=== PATIENT | female | born 1940 | race Asian ===

== ENCOUNTER 2017-10-28 09:50 | Emergency (ER) | payer MEDICARE, BC ==
[~2017-10-28] VITALS: Ht 154.9 cm; Wt 56.7 kg
[2017-10-28] MEDS ORDERED: VALS40TA4 PO (10:05)
[2017-10-28] MEDS ORDERED: ATEN50TA PO (10:05)
[2017-10-28] MEDS ORDERED: AMLO5TAB2 PO (10:05)
--- NOTE | 2017-10-28 10:30 | NUR ---
PATEINT STATES SHE DOESNT HAVE CHEST PAIN SHE HAS 'DISCOMFORT" AND STATES SHE THINKS IT MAY BE DUE TO "GAS". DR OBRIEN AWARE.
--- NOTE | 2017-10-28 10:56 | NUR ---
12 lead EKG done - NSR, given to Dr. Robert
[2017-10-28 10:57] LABS: CARBON DIOXIDE 27 mmol/L (21-32); CHLORIDE 89 mmol/L (98-107); CREATININE 0.5 mg/dL (0.6-1.3); GLUCOSE 75 mg/dL (74-106); POTASSIUM 3.9 mmol/L (3.5-5.1); UREA NITROGEN, BLOOD 12 mg/dL (7-18)
[2017-10-28 11:05] LABS: BASOPHILS % (AUTO) 0.4 % (0.0-2.0); EOSINOPHILS # (AUTO) 0.1 K/uL (0.0-0.7); EOSINOPHILS % (AUTO) 0.5 % (0.0-7.0); HEMATOCRIT 39.3 % (31.2-41.9); HEMOGLOBIN 13.4 g/dL (10.9-14.3); LYMPHOCYTES # (AUTO) 1.8 K/uL (20.0-40.0); LYMPHOCYTES % (AUTO) 18.3 % (20.5-51.5); MEAN CORPUSCULAR HEMOGLOBIN 32.6 uug (24.7-32.8); MEAN CORPUSCULAR HGB CONC 34 g/dL (32.3-35.6); MEAN CORPUSCULAR VOLUME 95.6 fL (75.5-95.3); MONOCYTES # (AUTO) 0.8 K/uL (2.0-10.0); MONOCYTES % (AUTO) 8.3 % (0.0-11.0); NEUTROPHILS # (AUTO) 7.2 K/uL (1.8-8.9); NEUTROPHILS % (AUTO) 72.5 % (38.5-71.5); PLATELET COUNT (AUTO) 330 K/uL (179-408); RED BLOOD CELL COUNT(AUTO) 4.12 MIL/uL (3.63-4.92)
[2017-10-28 11:09] LABS: ALANINE AMINOTRANSFERASE 28 U/L (14-59); ALKALINE PHOSPHATASE 57 U/L (50-136); ASPARTATE AMINOTRANSFERASE 15 U/L (15-37); BILIRUBIN,DIRECT 0.1 mg/dL (0.0-0.2); BILIRUBIN,TOTAL 0.6 mg/dL (0.2-1.0)
--- NOTE | 2017-10-28 11:45 | NUR ---
PT IS AWAKE AND ALERT WITH NO NEW COMPLAINTS. AWAITING TEST RESULTS.
[2017-10-28] MEDS ORDERED: ASPIRIN 81 MG TAB.CHEW PO ONE (12:45)
[2017-10-28] MEDS ORDERED: IV NORMAL SALINE 500 ML BAG IV ONE (12:45)
[2017-10-28] MEDS ORDERED: IV NORMAL SALINE 1000 ML BAG IV ONE (12:45)
--- NOTE | 2017-10-28 13:05 | NUR ---
DR OBRIEN WAS AT BEDSIDE SPEAKING TO PATIENT AND FAMILY
[2017-10-28] MEDS ORDERED: ASPIRIN 81 MG TAB.CHEW ONE (13:10)
--- NOTE | 2017-10-28 13:42 | NUR ---
IV DC'D, CATHETER TIP INTACT, PRESSURE APPLIED, DRESSING APPLIED. DC AND FOLLOW UP INSTRUCTIONS GIVEN AND EXPAINED TO PATIENT AND FAMILY WHO STATE THEY UNDERSTAND ALL INSTRUCTIONS. PATIENT SIGNED OUT AMA AND STATES SHE UNDERSTANDS ALL RISKS INCLUDING .
[2017-10-28 13:44] VITALS: BP 138/82
== END 2017-10-28 13:45 | disposition left against medical advice (07) ==
LOC: ER 09:50
DX: R07.89 Other chest pain (principal); E87.1 Hypo-osmolality and hyponatremia; I10 Essential (primary) hypertension; Z88.0 Allergy status to penicillin; E78.00 Pure hypercholesterolemia, unspecified
CPT/HCPCS: 36415; 71010; 80048; 80076; 83880; 84484; 85025; 85730; 93005; 96360; 99285; A4663; J7040; 70030-TC

== ENCOUNTER 2017-10-30 09:30 | Emergency (ER) | payer MEDICARE, BC ==
[~2017-10-30] VITALS: Ht 154.9 cm; Wt 56.7 kg
[~2017-10-30 09:30] MED LIST: AMLO5TAB2 PO; ATEN50TA PO; VALS40TA4 PO
[2017-10-30] MEDS ORDERED: ASPIRIN 81 MG TAB.CHEW PO ONE (10:30)
[2017-10-30] MEDS ORDERED: MAG HYDROX/AL HYDROX/SIMETH 30 ML LIQUID UDC PO ONE (10:30)
[2017-10-30] MEDS ORDERED: FAMOTIDINE 20 MG TABLET PO ONE (10:30)
[2017-10-30] MEDS ORDERED: MAG HYDROX/AL HYDROX/SIMETH 30 ML LIQUID UDC ONE (10:45)
[2017-10-30] MEDS ORDERED: ASPIRIN 81 MG TAB.CHEW ONE (10:45)
[2017-10-30] MEDS ORDERED: FAMOTIDINE 20 MG TABLET ONE (10:45)
--- NOTE | 2017-10-30 10:51 | NUR ---
MEDS ADMINISTERED, LABS DRAWN,EKG DONE, MONITOR SHOWS NSR/PO2=97% ON ROOM AIR. PT REFUSED SALINE LOCK.
[2017-10-30 11:00] LABS: BASOPHILS # (AUTO) 0.1 K/uL (0.0-8.0); BASOPHILS % (AUTO) 0.6 % (0.0-2.0); EOSINOPHILS # (AUTO) 0.1 K/uL (0.0-0.7); EOSINOPHILS % (AUTO) 0.6 % (0.0-7.0); HEMATOCRIT 37.5 % (31.2-41.9); HEMOGLOBIN 13.2 g/dL (10.9-14.3); LYMPHOCYTES # (AUTO) 1.3 K/uL (20.0-40.0); LYMPHOCYTES % (AUTO) 13.1 % (20.5-51.5); MEAN CORPUSCULAR HEMOGLOBIN 33.7 uug (24.7-32.8); MEAN CORPUSCULAR HGB CONC 35 g/dL (32.3-35.6); MEAN CORPUSCULAR VOLUME 96.1 fL (75.5-95.3); MONOCYTES # (AUTO) 0.8 K/uL (2.0-10.0); MONOCYTES % (AUTO) 7.9 % (0.0-11.0); NEUTROPHILS # (AUTO) 7.5 K/uL (1.8-8.9); NEUTROPHILS % (AUTO) 77.8 % (38.5-71.5); PLATELET COUNT (AUTO) 326 K/uL (179-408); RED BLOOD CELL COUNT(AUTO) 3.91 MIL/uL (3.63-4.92); WHITE BLOOD COUNT (AUTO) 9.7 K/uL (3.8-11.8)
[2017-10-30 11:01] LABS: CARBON DIOXIDE 24 mmol/L (21-32); CHLORIDE 93 mmol/L (98-107); CREATININE 0.6 mg/dL (0.6-1.3); GLUCOSE 103 mg/dL (74-106); POTASSIUM 4.1 mmol/L (3.5-5.1); UREA NITROGEN, BLOOD 13 mg/dL (7-18)
[2017-10-30 11:14] LABS: ALANINE AMINOTRANSFERASE 28 U/L (14-59); ALKALINE PHOSPHATASE 66 U/L (50-136); ASPARTATE AMINOTRANSFERASE 19 U/L (15-37); BILIRUBIN,DIRECT 0.2 mg/dL (0.0-0.2); BILIRUBIN,TOTAL 0.5 mg/dL (0.2-1.0); TOTAL PROTEIN, SERUM 6.7 g/dL (6.4-8.2)
[2017-10-30 11:28] LABS: BAND % (MANUAL) 2 % (0-10); EOSINOPHILS % (MANUAL) 1 % (0-8); LYMPHOCYTES % (MANUAL) 13 % (20-40); METAMYELOCYTES % 1 % (0-1); MONOCYTES % (MANUAL) 8 % (2-10); MYELOCYTES % 1 % (0-0); NEUTROPHILS % (MANUAL) 74 % (42-75)
--- NOTE | 2017-10-30 13:10 | NUR ---
MSE COMPLETED, PT SIGNED OUT AMA, COPY OG EKG AND TESTS GIVEN TO PT. PT GOT DRESSED AND AMBULATED WITH WALKER W/O DIFF/TOOK ALL BELONGINGS.
[2017-10-30 13:11] VITALS: BP 118/60
== END 2017-10-30 13:12 | disposition left against medical advice (07) ==
LOC: ER 09:30
DX: R07.89 Other chest pain (principal); I10 Essential (primary) hypertension; E78.00 Pure hypercholesterolemia, unspecified; Z88.0 Allergy status to penicillin
CPT/HCPCS: 36415; 70030-TC; 71045; 85025; 85730; 93005; A4663

== ENCOUNTER 2019-04-27 11:54 | Inpatient (IN) | payer MEDICARE, BC ==
[2019-04-27] VITALS (11 sets, daily range): BP systolic 111–144; BP diastolic 41–85
[~2019-04-27] VITALS: Ht 165.1 cm; Wt 59.0 kg
[~2019-04-27 11:54] MED LIST changes: -AMLO5TAB2 PO; +AMLO5TAB9 PO
[2019-04-27] MEDS ORDERED: BRIM5DRO3 EACHEYE (12:22)
[2019-04-27] MEDS ORDERED: ASPI-605 PO (12:22)
[2019-04-27] MEDS ORDERED: PREDNISOLONE 1% LEFTEYE (12:22)
[2019-04-27] MEDS ORDERED: IMDUR PO (12:22)
[2019-04-27] MEDS ORDERED: ATOR10TA PO (12:22)
[2019-04-27] MEDS ORDERED: PLAVIX (12:22)
[2019-04-27] MEDS ORDERED: NETARSUDIL RIGHTEYE (12:22)
[2019-04-27] MEDS ORDERED: CLON0.5T12 PO (12:22)
[2019-04-27 13:10] LABS: BASOPHILS % (AUTO) 0.3 % (0.0-2.0); EOSINOPHILS % (AUTO) 0.1 % (0.0-7.0); HEMATOCRIT 27.7 % (31.2-41.9); HEMOGLOBIN 9.3 g/dL (10.9-14.3); LYMPHOCYTES # (AUTO) 2.4 K/uL (20.0-40.0); LYMPHOCYTES % (AUTO) 16.3 % (20.5-51.5); MEAN CORPUSCULAR HEMOGLOBIN 32.1 uug (24.7-32.8); MEAN CORPUSCULAR HGB CONC 34 g/dL (32.3-35.6); MEAN CORPUSCULAR VOLUME 95.6 fL (75.5-95.3); MONOCYTES # (AUTO) 0.9 K/uL (2.0-10.0); MONOCYTES % (AUTO) 5.9 % (0.0-11.0); NEUTROPHILS # (AUTO) 11.5 K/uL (1.8-8.9); NEUTROPHILS % (AUTO) 77.4 % (38.5-71.5); PLATELET COUNT (AUTO) 293 K/uL (179-408); WHITE BLOOD COUNT (AUTO) 14.8 K/uL (3.8-11.8)
[2019-04-27 13:19] LABS: CARBON DIOXIDE 25 mmol/L (21-32); CHLORIDE 103 mmol/L (98-107); CREATININE 1.1 mg/dL (0.6-1.3); GLUCOSE 138 mg/dL (74-106); POTASSIUM 4.2 mmol/L (3.5-5.1); UREA NITROGEN, BLOOD 46 mg/dL (7-18)
[2019-04-27 13:25] LABS: ALANINE AMINOTRANSFERASE 23 U/L (14-59); ALKALINE PHOSPHATASE 44 U/L (50-136); ASPARTATE AMINOTRANSFERASE 8 U/L (15-37); BILIRUBIN,DIRECT 0.1 mg/dL (0.0-0.2); BILIRUBIN,TOTAL 0.3 mg/dL (0.2-1.0); LIPASE 78 U/L (73-393); TOTAL PROTEIN, SERUM 6.5 g/dL (6.4-8.2)
[2019-04-27] MEDS ORDERED: PANTOPRAZOLE SODIUM IV 80 MG in IV DEXTROSE 5% 500 ML IV ONE (13:45)
[2019-04-27] MEDS ORDERED: IV NORMAL SALINE 1000 ML BAG IV ONE (13:45)
[2019-04-27] MEDS ORDERED: PANTOPRAZOLE SODIUM IV 80 MG in IV DEXTROSE 5% 100 ML IV ONE (13:45)
[2019-04-27] MEDS ORDERED: PANTOPRAZOLE SODIUM 40 MG VIAL ONE (14:11)
[2019-04-27] MEDS ORDERED: PANTOPRAZOLE SODIUM 40 MG VIAL IV ONE (14:15)
[2019-04-27] MEDS ORDERED: ACETAMINOPHEN 650 MG SUPP.RECT RC PRN (17:30)
[2019-04-27] MEDS ORDERED: ENALAPRILAT DIHYDRATE 2.5 MG/2 ML VIAL IV PRN (17:30)
[2019-04-27 17:37] LABS: *BILIRUBIN,URIN NEGATIVE (NEGATIVE); *BLOOD, URINE NEGATIVE (NEGATIVE); *CLARITY,URINE CLEAR (CLEAR); *COLOR,URINE YELLOW (YELLOW); *KETONES,URINE NEGATIVE (NEGATIVE); *UROBILINOGEN,URINE 0.2 E.U./dl (NORMAL); LEUKOCYTE ESTERASE ,URINE NEGATIVE (NEGATIVE); NITRITE, URINE NEGATIVE (NEGATIVE); UGLUCOSE NEGATIVE (NEGATIVE)
[2019-04-27] MEDS: MORPHINE SULFATE 2 MG/1 ML DISP.SYRIN IV PRN ×2 (17:58→20:34)
[2019-04-27] MEDS: POTASSIUM CHLORIDE 20 MEQ in IV D5 1/2 NS 1000 ML 1,000 ML IV PRN (19:26)
[2019-04-27] MEDS ORDERED: ENALAPRILAT DIHYDRATE 1.25 MG/1 ML VIAL IV PRN (19:30)
[2019-04-27] MEDS ORDERED: BRIMONIDINE-P 0.1% OPHTH DROP 5 ML DROPS EACHEYE SCH (19:45)
[2019-04-27] MEDS ORDERED: BIMATOPROST 0.01% OPHT DROP 2.5 ML BOTTLE RIGHTEYE SCH ×2 (21:00)
[2019-04-27 21:44] LABS: MEAN CORPUSCULAR VOLUME 96.2 fL (75.5-95.3); MONOCYTES # (AUTO) 0.7 K/uL (2.0-10.0)
[2019-04-27 21:45] LABS: BASOPHILS % (AUTO) 0.3 % (0.0-2.0); EOSINOPHILS # (AUTO) 0.1 K/uL (0.0-0.7); EOSINOPHILS % (AUTO) 0.5 % (0.0-7.0); HEMATOCRIT 21.8 % (31.2-41.9); LYMPHOCYTES # (AUTO) 2.4 K/uL (20.0-40.0); LYMPHOCYTES % (AUTO) 20.2 % (20.5-51.5); MEAN CORPUSCULAR HEMOGLOBIN 31.7 uug (24.7-32.8); MEAN CORPUSCULAR HGB CONC 33 g/dL (32.3-35.6); NEUTROPHILS # (AUTO) 8.5 K/uL (1.8-8.9); PLATELET COUNT (AUTO) 211 K/uL (179-408); WHITE BLOOD COUNT (AUTO) 11.7 K/uL (3.8-11.8)
[2019-04-27 21:48] LABS: RED BLOOD CELL COUNT(AUTO) 2.26 MIL/uL (3.63-4.92)
[2019-04-27 21:50] LABS: HEMOGLOBIN 7.2 g/dL (10.9-14.3)
[2019-04-27] MEDS ORDERED: OCTREOTIDE ACETATE 100 MCG/1 MLVIAL ONE (22:39)
[2019-04-27] MEDS ORDERED: OCTREOTIDE ACETATE 50 MCG/1 ML ML ONE (22:40)
[2019-04-27] MEDS ORDERED: OCTREOTIDE ACETATE 500 MCG/1 ML VIAL ONE (22:43)
[2019-04-27] MEDS: OCTREOTIDE ACETATE DRIP 1,250 MCG in IV NORMAL SALINE 247.5 ML IV PRN (23:29)
[2019-04-28] VITALS (26 sets, daily range): BP systolic 92–165; BP diastolic 48–98
[2019-04-28] MEDS: MORPHINE SULFATE 2 MG/1 ML DISP.SYRIN IV PRN ×2 (02:36→07:38)
[2019-04-28 05:38] LABS: BASOPHILS % (AUTO) 0.4 % (0.0-2.0); EOSINOPHILS # (AUTO) 0.1 K/uL (0.0-0.7); EOSINOPHILS % (AUTO) 0.6 % (0.0-7.0); LYMPHOCYTES # (AUTO) 1.7 K/uL (20.0-40.0); LYMPHOCYTES % (AUTO) 14.7 % (20.5-51.5); MEAN CORPUSCULAR HEMOGLOBIN 31.1 uug (24.7-32.8); MEAN CORPUSCULAR HGB CONC 33 g/dL (32.3-35.6); MEAN CORPUSCULAR VOLUME 93.3 fL (75.5-95.3); MONOCYTES # (AUTO) 0.6 K/uL (2.0-10.0); MONOCYTES % (AUTO) 5.2 % (0.0-11.0); NEUTROPHILS # (AUTO) 9.4 K/uL (1.8-8.9); NEUTROPHILS % (AUTO) 79.1 % (38.5-71.5); PLATELET COUNT (AUTO) 196 K/uL (179-408); RED BLOOD CELL COUNT(AUTO) 2.89 MIL/uL (3.63-4.92); WHITE BLOOD COUNT (AUTO) 11.9 K/uL (3.8-11.8)
[2019-04-28 06:03] LABS: ALANINE AMINOTRANSFERASE 19 U/L (14-59); ALKALINE PHOSPHATASE 34 U/L (50-136); ASPARTATE AMINOTRANSFERASE 28 U/L (15-37); BILIRUBIN,TOTAL 0.8 mg/dL (0.2-1.0); CARBON DIOXIDE 24 mmol/L (21-32); CHLORIDE 104 mmol/L (98-107); CREATININE 0.8 mg/dL (0.6-1.3); GLUCOSE 150 mg/dL (74-106); MAGNESIUM 1.9 mg/dL (1.8-2.4); POTASSIUM 3.9 mmol/L (3.5-5.1); TOTAL PROTEIN, SERUM 5.4 g/dL (6.4-8.2); UREA NITROGEN, BLOOD 13 mg/dL (7-18)
[2019-04-28 06:25] LABS: LYMPHOCYTES % (MANUAL) 24 % (20-40); MONOCYTES % (MANUAL) 3 % (2-10); NEUTROPHILS % (MANUAL) 73 % (42-75)
[2019-04-28 06:28] LABS: THYROID STIMULATING HORMONE 0.385 mIU/mL (0.358-3.740)
[2019-04-28] MEDS: ONDANSETRON 4 MG/2 ML VIAL IV PRN (06:51)
[2019-04-28] MEDS: PANTOPRAZOLE SODIUM 40 MG VIAL IV SCH ×2 (07:36→20:11)
[2019-04-28] MEDS ORDERED: BRIMONIDINE-P 0.1% OPHTH DROP 5 ML DROPS EACHEYE SCH (09:00)
[2019-04-28] MEDS: BRIMONIDINE 0.2% OPHT DROP 10 ML BOTTLE EACHEYE SCH ×2 (09:03→16:44)
[2019-04-28] MEDS: prednisoLONE ACET 1% OPHT DROP 5 ML BOTTLE LEFTEYE SCH (09:04)
[2019-04-28] MEDS: ATORVASTATIN 40 MG TABLET PO SCH ×2 (10:45→20:11)
[2019-04-28] MEDS: OCTREOTIDE ACETATE DRIP 1,250 MCG in IV NORMAL SALINE 247.5 ML IV PRN (11:05)
[2019-04-28] MEDS: ISOSORBIDE MONONITRATE 30 MG TAB.SR.24H PO SCH (11:11)
[2019-04-28] MEDS: ASPIRIN 81 MG TAB.CHEW PO SCH (11:11)
[2019-04-28] MEDS: METOPROLOL TARTRATE 25 MG TABLET PO SCH ×2 (11:12→20:12)
[2019-04-28] MEDS ORDERED: NEUTRA PHOS PACKET PO ONE (12:00)
[2019-04-28 13:54] LABS: HEMOGLOBIN 9.4 g/dL (10.9-14.3)
[2019-04-28 16:23] LABS: CHOLESTEROL 127 mg/dL (<200); HDL CHOLESTEROL 38 mg/dL (40-60)
[2019-04-28 16:24] LABS: TRIGLYCERIDES 155 MG/DL (30-150)
[2019-04-28] MEDS: POTASSIUM CHLORIDE 20 MEQ in IV D5 1/2 NS 1000 ML 1,000 ML IV PRN (20:10)
[2019-04-28] MEDS: LATANOPROST OPHT DROP 2.5 ML BOTTLE RIGHTEYE SCH (20:10)
[2019-04-29] VITALS (14 sets, daily range): BP systolic 102–132; BP diastolic 49–70
[2019-04-29 05:13] LABS: BASOPHILS % (AUTO) 0.2 % (0.0-2.0); EOSINOPHILS % (AUTO) 0.5 % (0.0-7.0); LYMPHOCYTES # (AUTO) 1.1 K/uL (20.0-40.0); LYMPHOCYTES % (AUTO) 10.3 % (20.5-51.5); MEAN CORPUSCULAR HEMOGLOBIN 31.9 uug (24.7-32.8); MEAN CORPUSCULAR HGB CONC 35 g/dL (32.3-35.6); MONOCYTES # (AUTO) 0.4 K/uL (2.0-10.0); PLATELET COUNT (AUTO) 211 K/uL (179-408); RED BLOOD CELL COUNT(AUTO) 2.83 MIL/uL (3.63-4.92); WHITE BLOOD COUNT (AUTO) 10.5 K/uL (3.8-11.8)
[2019-04-29 05:29] LABS: CARBON DIOXIDE 26 mmol/L (21-32); CHLORIDE 103 mmol/L (98-107); CREATININE 0.7 mg/dL (0.6-1.3); GLUCOSE 149 mg/dL (74-106); PHOSPHOROUS 2.8 mg/dL (2.5-4.9); POTASSIUM 3.7 mmol/L (3.5-5.1); UREA NITROGEN, BLOOD 8 mg/dL (7-18)
[2019-04-29] MEDS: PANTOPRAZOLE SODIUM 40 MG VIAL IV SCH ×2 (08:08→20:10)
[2019-04-29] MEDS: ASPIRIN 81 MG TAB.CHEW PO SCH (08:09)
[2019-04-29] MEDS: ISOSORBIDE MONONITRATE 30 MG TAB.SR.24H PO SCH (08:09)
[2019-04-29] MEDS: METOPROLOL TARTRATE 25 MG TABLET PO SCH ×2 (08:10→20:10)
[2019-04-29] MEDS: prednisoLONE ACET 1% OPHT DROP 5 ML BOTTLE LEFTEYE SCH (08:10)
[2019-04-29] MEDS: BRIMONIDINE 0.2% OPHT DROP 10 ML BOTTLE EACHEYE SCH ×2 (08:10→17:18)
[2019-04-29] MEDS: OCTREOTIDE ACETATE DRIP 1,250 MCG in IV NORMAL SALINE 247.5 ML IV PRN (12:40)
[2019-04-29] MEDS: ONDANSETRON 4 MG/2 ML VIAL IV PRN (13:36)
[2019-04-29] MEDS: POTASSIUM CHLORIDE 20 MEQ in IV D5 1/2 NS 1000 ML 1,000 ML IV PRN (18:04)
[2019-04-29] MEDS: ATORVASTATIN 40 MG TABLET PO SCH (20:10)
[2019-04-29] MEDS: LATANOPROST OPHT DROP 2.5 ML BOTTLE RIGHTEYE SCH (20:12)
[2019-04-30 00:12] VITALS: BP 129/66
[2019-04-30 04:00] VITALS: BP 134/69
[2019-04-30 07:36] LABS: HEMOGLOBIN 9.5 g/dL (10.9-14.3); RED BLOOD CELL COUNT(AUTO) 3.04 MIL/uL (3.63-4.92)
[2019-04-30 07:37] LABS: BASOPHILS % (AUTO) 0.3 % (0.0-2.0); EOSINOPHILS # (AUTO) 0.1 K/uL (0.0-0.7); EOSINOPHILS % (AUTO) 1.2 % (0.0-7.0); HEMATOCRIT 28.6 % (31.2-41.9); LYMPHOCYTES # (AUTO) 0.8 K/uL (20.0-40.0); LYMPHOCYTES % (AUTO) 11.1 % (20.5-51.5); MEAN CORPUSCULAR HEMOGLOBIN 31.2 uug (24.7-32.8); MEAN CORPUSCULAR HGB CONC 33 g/dL (32.3-35.6); MEAN CORPUSCULAR VOLUME 93.8 fL (75.5-95.3); MONOCYTES # (AUTO) 0.4 K/uL (2.0-10.0); NEUTROPHILS # (AUTO) 5.7 K/uL (1.8-8.9); NEUTROPHILS % (AUTO) 81.4 % (38.5-71.5); PLATELET COUNT (AUTO) 247 K/uL (179-408)
[2019-04-30 07:40] LABS: CARBON DIOXIDE 26 mmol/L (21-32); CHLORIDE 106 mmol/L (98-107); CREATININE 0.6 mg/dL (0.6-1.3); GLUCOSE 156 mg/dL (74-106); MAGNESIUM 2.3 mg/dL (1.8-2.4); PHOSPHOROUS 2.1 mg/dL (2.5-4.9); POTASSIUM 3.8 mmol/L (3.5-5.1); UREA NITROGEN, BLOOD 5 mg/dL (7-18)
[2019-04-30] MEDS: BRIMONIDINE 0.2% OPHT DROP 10 ML BOTTLE EACHEYE SCH ×2 (08:21→16:36)
[2019-04-30] MEDS: PANTOPRAZOLE SODIUM 40 MG VIAL IV SCH (08:21)
[2019-04-30] MEDS: prednisoLONE ACET 1% OPHT DROP 5 ML BOTTLE LEFTEYE SCH (08:22)
[2019-04-30] MEDS: ASPIRIN 81 MG TAB.CHEW PO SCH (08:23)
[2019-04-30] MEDS: ISOSORBIDE MONONITRATE 30 MG TAB.SR.24H PO SCH (08:25)
[2019-04-30] MEDS: METOPROLOL TARTRATE 25 MG TABLET PO SCH (08:25)
[2019-04-30] MEDS: POTASSIUM CHLORIDE 20 MEQ in IV D5 1/2 NS 1000 ML 1,000 ML IV PRN (09:12)
[2019-04-30] MEDS ORDERED: PROPOFOL 200 MG/20 ML BOTTLE IV ONE (11:05)
[2019-04-30] MEDS ORDERED: ESMOLOL HCL 100 MG/10 ML VIAL IV ONE (11:05)
[2019-04-30] MEDS ORDERED: LIDOCAINE-MPF 2% 5 ML VIAL MC ONE (11:05)
[2019-04-30] MEDS ORDERED: IV NORMAL SALINE 1000 ML BAG IV ONE (11:05)
[2019-04-30] MEDS ORDERED: IRR STERIL WATER FOR IRR 1000 ML BOTTLE IR ONE (11:05)
[2019-04-30 11:40] VITALS: BP 113/53
[2019-04-30 16:00] VITALS: BP 116/50
[2019-04-30] MEDS ORDERED: NEUTRA PHOS PACKET PO ONE (16:15)
== END 2019-04-30 17:00 | disposition home or self-care (01) | DRG 377 ==
LOC: ER 11:56 → CCU 14:19 → TELE3 04-29 15:48
PROVIDERS: ADMIT Internal Medicine; ATTEND Internal Medicine
PROC: 30233N1 Transfusion of Nonautologous Red Blood Cells into Peripheral Vein, Percutaneous Approach (ICD-10-PCS; principal; 2019-04-28)
PROC: 0DB68ZX Excision of Stomach, Via Natural or Artificial Opening Endoscopic, Diagnostic (ICD-10-PCS; 2019-04-30)
DX: K25.4 Chronic or unspecified gastric ulcer with hemorrhage (principal); I21.4 Non-ST elevation (NSTEMI) myocardial infarction; R57.1 Hypovolemic shock; N17.0 Acute kidney failure with tubular necrosis; D62 Acute posthemorrhagic anemia; D68.59 Other primary thrombophilia; I25.10 Atherosclerotic heart disease of native coronary artery without angina pectoris; Z95.5 Presence of coronary angioplasty implant and graft; Z74.09 Other reduced mobility; K29.70 Gastritis, unspecified, without bleeding; M19.90 Unspecified osteoarthritis, unspecified site; Z96.651 Presence of right artificial knee joint; Z96.642 Presence of left artificial hip joint; Z94.7 Corneal transplant status; Z79.899 Other long term (current) drug therapy; Z79.02 Long term (current) use of antithrombotics/antiplatelets; I70.0 Atherosclerosis of aorta; I11.9 Hypertensive heart disease without heart failure; H40.9 Unspecified glaucoma; E78.5 Hyperlipidemia, unspecified; D75.89 Other specified diseases of blood and blood-forming organs; E11.9 Type 2 diabetes mellitus without complications; E78.00 Pure hypercholesterolemia, unspecified; Z79.82 Long term (current) use of aspirin
CPT/HCPCS: 36415; 70030-TC; 71045; 83605; 83690; 83735; 84100; 84443; 85018; 85025; 85730; 86850; 86900; 86901; 86920; 87040; 87086; 88342; 93005; 93307; 97116; 97530; A4217; A4663; C9113; G0378; J2270; J2354; J2405; J2650; J3480; J3490; J7030; J7050; J7060; P9016-BL; P9021

== ENCOUNTER 2023-11-14 13:25 | Inpatient (IN) | payer MEDICARE, BC ==
[~2023-11-14] VITALS: Ht 152.4 cm; Wt 56.7 kg
[~2023-11-14 13:25] MED LIST changes: -AMLO5TAB9 PO; +ASPI-605 PO; +ATOR10TA PO; +BRIM5DRO3 EACHEYE; +CLON0.5T4 PO; +IMDUR PO; +NETARSUDIL RIGHTEYE; +PLAVIX; +PREDNISOLONE 1% LEFTEYE; -VALS40TA4 PO
[2023-11-14 15:10] LABS: BASOPHILS % (AUTO) 0.2 % (0.0-2.0); DIFFERENTIAL COMMENT 0; EOSINOPHILS % (AUTO) 0.1 % (0.0-7.0); HEMATOCRIT 37.7 % (31.2-41.9); HEMOGLOBIN 12.4 g/dL (10.9-14.3); LYMPHOCYTES # (AUTO) 0.8 K/uL (0.8-4.8); LYMPHOCYTES % (AUTO) 5.7 % (20.5-51.5); MEAN CORPUSCULAR HEMOGLOBIN 30.1 uug (24.7-32.8); MEAN CORPUSCULAR HGB CONC 33 g/dL (32.3-35.6); MEAN CORPUSCULAR VOLUME 91.2 fL (75.5-95.3); MONOCYTES # (AUTO) 0.6 K/uL (0.1-1.30); MONOCYTES % (AUTO) 4.1 % (0.0-11.0); NEUTROPHILS # (AUTO) 12.9 K/uL (1.8-8.9); NEUTROPHILS % (AUTO) 89.9 % (38.5-71.5); PLATELET COUNT (AUTO) 419 K/uL (179-408); RED BLOOD CELL COUNT(AUTO) 4.14 MIL/uL (3.63-4.92); RED CELL DISTRIBUTION WIDTH 13.9 % (12.3-17.7); WHITE BLOOD COUNT (AUTO) 14.3 K/uL (3.8-11.8)
[2023-11-14 15:20] LABS: CARBON DIOXIDE 27 mmol/L (21-32); CHLORIDE 96 mmol/L (98-107); CREATININE 0.7 mg/dL (0.6-1.3); GLUCOSE 111 mg/dL (74-106); POTASSIUM 4.2 mmol/L (3.5-5.1); SODIUM SERUM 134 mmol/L (136-145); UREA NITROGEN, BLOOD 9 mg/dL (7-18)
[2023-11-14 15:32] LABS: ALANINE AMINOTRANSFERASE 47 U/L (14-59); ALBUMIN 3.6 g/dL (3.4-5.0); ALKALINE PHOSPHATASE 68 U/L (50-136); ASPARTATE AMINOTRANSFERASE 16 U/L (15-37); BILIRUBIN,DIRECT 0.1 mg/dL (0.0-0.2); BILIRUBIN,TOTAL 0.5 mg/dL (0.2-1.0); LACTIC ACID 2.2 mmol/L (0.4-2.0); NT-PRO BNP 78 pg/mL (0-125); TOTAL PROTEIN, SERUM 6.8 g/dL (6.4-8.2)
[2023-11-14] MEDS ORDERED: METRONIDAZOLE 500 MG/NS 100ML 100 ML IV ONE ×2 (15:45→15:52)
[2023-11-14] MEDS ORDERED: IV NORMAL SALINE 1000 ML BAG IV ONE (15:45)
[2023-11-14] MEDS ORDERED: CEFTRIAXONE 1 G in IV DEXTROSE 5% 50 ML IV ONE (15:45)
[2023-11-14] MEDS ORDERED: CEFTRIAXONE /D5W 50ML IVPB **ER PYXIS IV ONE (15:51)
[2023-11-14 15:54] LABS: *BILIRUBIN,URIN NEGATIVE (NEGATIVE); *BLOOD, URINE NEGATIVE (NEGATIVE); *CLARITY,URINE CLEAR (CLEAR); *COLOR,URINE YELLOW (YELLOW); *KETONES,URINE NEGATIVE (NEGATIVE); *PROTEIN,URINE NEGATIVE (NEGATIVE); *UROBILINOGEN,URINE 0.2 E.U./dl (NORMAL); LEUKOCYTE ESTERASE ,URINE NEGATIVE (NEGATIVE); NITRITE, URINE NEGATIVE (NEGATIVE); UGLUCOSE NEGATIVE (NEGATIVE)
[2023-11-14] MEDS ORDERED: HYDROCODONE/APAP 5-325MG TABLET PO PRN (20:00)
[2023-11-14] MEDS ORDERED: ONDANSETRON 4 MG/2 ML VIAL IV PRN (20:00)
[2023-11-14] MEDS ORDERED: BISACODYL 10 MG SUPP.RECT RC PRN (20:00)
[2023-11-14] MEDS ORDERED: ACETAMINOPHEN 325 MG TABLET PO PRN (20:00)
[2023-11-14] MEDS ORDERED: levoFLOXacin 500 MG/D5W 500 MG in PREMIXED 1 EACH IV SCH (20:00)
[2023-11-14] MEDS ORDERED: METRONIDAZOLE 500 MG/NS 100ML 500 MG in PREMIXED 1 EACH IV SCH (22:00)
[2023-11-15] VITALS (7 sets, daily range): BP systolic 90–167; BP diastolic 51–82; TEMP 98.2–98.8; O2SAT 94–96
[2023-11-15] MEDS ORDERED: levoFLOXacin 500 MG/D5W 500 MG in PREMIXED 1 EACH IV SCH (00:30)
[2023-11-15] MEDS ORDERED: levoFLOXacin 500 MG/D5W 100 ML ONE (01:05)
[2023-11-15] MEDS ORDERED: METRONIDAZOLE 500 MG/NS 100ML 100 ML IV ONE (01:06)
[2023-11-15] MEDS: DOCUSATE SODIUM 100 MG CAPSULE PO SCH ×2 (01:12→20:52)
[2023-11-15] MEDS: ATORVASTATIN 10 MG TABLET PO SCH ×2 (01:12→20:52)
[2023-11-15] MEDS: IV 1/2NS 1000 ML 1,000 ML IV PRN ×2 (01:15→18:27)
[2023-11-15] MEDS: PANTOPRAZOLE SODIUM 40 MG TABLET.DR PO SCH (06:28)
[2023-11-15 07:42] LABS: EOSINOPHILS # (AUTO) 2.3 K/uL (0.0-0.7); EOSINOPHILS % (AUTO) 20.6 % (0.0-7.0); HEMATOCRIT 38.3 % (31.2-41.9); HEMOGLOBIN 12.6 g/dL (10.9-14.3); LYMPHOCYTES # (AUTO) 0.9 K/uL (0.8-4.8); LYMPHOCYTES % (AUTO) 8.1 % (20.5-51.5); MEAN CORPUSCULAR HEMOGLOBIN 30.2 uug (24.7-32.8); MEAN CORPUSCULAR HGB CONC 33 g/dL (32.3-35.6); MEAN CORPUSCULAR VOLUME 91.6 fL (75.5-95.3); MONOCYTES # (AUTO) 0.3 K/uL (0.1-1.30); MONOCYTES % (AUTO) 2.9 % (0.0-11.0); NEUTROPHILS # (AUTO) 7.8 K/uL (1.8-8.9); NEUTROPHILS % (AUTO) 68.4 % (38.5-71.5); PLATELET COUNT (AUTO) 421 K/uL (179-408); RED BLOOD CELL COUNT(AUTO) 4.18 MIL/uL (3.63-4.92); RED CELL DISTRIBUTION WIDTH 13.7 % (12.3-17.7); WHITE BLOOD COUNT (AUTO) 11.4 K/uL (3.8-11.8)
[2023-11-15 07:46] LABS: DIFFERENTIAL COMMENT 1
[2023-11-15 08:04] LABS: THYROID STIMULATING HORMONE 4.792 mIU/mL (0.358-3.740)
[2023-11-15 08:09] LABS: ALANINE AMINOTRANSFERASE 33 U/L (14-59); ALBUMIN 3.4 g/dL (3.4-5.0); ALKALINE PHOSPHATASE 58 U/L (50-136); ASPARTATE AMINOTRANSFERASE 14 U/L (15-37); BILIRUBIN,TOTAL 0.5 mg/dL (0.2-1.0); CALCIUM 8.6 mg/dL (8.5-10.1); CARBON DIOXIDE 30 mmol/L (21-32); CHLORIDE 101 mmol/L (98-107); CHOLESTEROL 148 mg/dL (<200); CREATININE 0.6 mg/dL (0.6-1.3); GLUCOSE 87 mg/dL (74-106); HDL CHOLESTEROL 66 mg/dL (40-60); MAGNESIUM 2.1 mg/dL (1.8-2.4); PHOSPHOROUS 3.5 mg/dL (2.5-4.9); POTASSIUM 3.8 mmol/L (3.5-5.1); SODIUM SERUM 139 mmol/L (136-145); TOTAL PROTEIN, SERUM 6.5 g/dL (6.4-8.2); TRIGLYCERIDES 91 MG/DL (30-150); UREA NITROGEN, BLOOD 8 mg/dL (7-18)
[2023-11-15] MEDS ORDERED: BRIMONIDINE-P 0.1% OPHTH DROP 5 ML DROPS EACHEYE SCH (09:00)
[2023-11-15] MEDS ORDERED: ATENOLOL 50 MG TABLET PO SCH ×2 (09:00)
[2023-11-15] MEDS ORDERED: ISOSORBIDE MONONITRATE 30 MG TAB.SR.24H PO SCH ×3 (09:00→21:00)
[2023-11-15] MEDS ORDERED: CLONAZEPAM 0.5 MG TABLET PO SCH ×2 (09:00)
[2023-11-15] MEDS: prednisoLONE ACET 1% OPHT DROP 5 ML BOTTLE LEFTEYE SCH (09:06)
[2023-11-15] MEDS: ASPIRIN EC 81 MG TABLET.DR PO SCH (09:06)
[2023-11-15] MEDS: BRIMONIDINE 0.2% OPHT DROP 10 ML BOTTLE EACHEYE SCH ×3 (09:06→17:24)
[2023-11-15] MEDS: METRONIDAZOLE 500 MG/NS 100ML 500 MG in PREMIXED 1 EACH IV SCH ×2 (09:08→16:31)
[2023-11-15] MEDS ORDERED: CLON1TAB12 PO (13:13)
[2023-11-15] MEDS ORDERED: HYDR10TA37 PO (13:13)
[2023-11-15] MEDS ORDERED: ISOS30TA86 PO (13:13)
[2023-11-15] MEDS ORDERED: PRED5DRO24 LEFTEYE (13:13)
[2023-11-15] MEDS ORDERED: DORZ10DR19 EACHEYE (13:13)
[2023-11-15] MEDS ORDERED: MONT10TA33 PO (13:13)
[2023-11-15] MEDS ORDERED: PANT40TA2 PO (13:13)
[2023-11-15] MEDS ORDERED: CLOP75TA15 PO (13:13)
[2023-11-15] MEDS ORDERED: OLME40TA12 PO (13:13)
[2023-11-15] MEDS ORDERED: NETA2.5D3 RIGHTEYE (13:14)
[2023-11-15] MEDS ORDERED: PANTOPRAZOLE SODIUM 40 MG TABLET.DR PO SCH (14:00)
[2023-11-15] MEDS ORDERED: BISACODYL 10 MG SUPP.RECT RC ONE (14:00)
[2023-11-15] MEDS ORDERED: LACTULOSE 20 G/30 ML LIQUID UDC PO ONE (14:00)
[2023-11-15] MEDS ORDERED: SORBITOL 70% SOLUTION 30 ML UDC PO ONE (14:00)
[2023-11-15] MEDS ORDERED: hydrOXYzine HCL 10 MG TABLET PO PRN (14:00)
[2023-11-15] MEDS ORDERED: CLONAZEPAM 1 MG TABLET PO PRN (14:00)
[2023-11-15] MEDS: MONTELUKAST SODIUM 10 MG TABLET PO SCH (14:37)
[2023-11-15] MEDS: CLOPIDOGREL 75 MG TABLET PO SCH (14:37)
[2023-11-15 14:55] LABS: BAND % (MANUAL) 3 % (0-10); EOSINOPHILS % (MANUAL) 4 % (0-8); LYMPHOCYTES % (MANUAL) 13 % (20-40); MONOCYTES % (MANUAL) 5 % (2-10); NEUTROPHILS % (MANUAL) 70 % (42-75)
[2023-11-15 14:56] LABS: REACTIVE LYMPHOCYTES 5 % (0-0)
[2023-11-16] MEDS ORDERED: levoFLOXacin 500 MG/D5W 500 MG in PREMIXED 1 EACH IV SCH (01:00)
[2023-11-16] MEDS ORDERED: LEVOFLOXACIN/D5W 250 MG in PREMIX 1 EA IV SCH ×4 (01:00)
[2023-11-16] MEDS: METRONIDAZOLE 500 MG/NS 100ML 500 MG in PREMIXED 1 EACH IV SCH ×2 (01:06→09:37)
[2023-11-16 04:00] VITALS: BP 133/52; TEMP 98.9; O2SAT 96
[2023-11-16] MEDS: PANTOPRAZOLE SODIUM 40 MG TABLET.DR PO SCH (06:09)
[2023-11-16 08:00] VITALS: BP 148/70; TEMP 99; O2SAT 97
[2023-11-16] MEDS ORDERED: Medication Not On Formulary EA (Olmesartan Medoxomil (Benicar) 40 MG) PO SCH (09:00)
[2023-11-16] MEDS ORDERED: LOSARTAN POTASSIUM 50 MG TABLET PO SCH (09:00)
[2023-11-16] MEDS: CLOPIDOGREL 75 MG TABLET PO SCH (09:35)
[2023-11-16] MEDS: prednisoLONE ACET 1% OPHT DROP 5 ML BOTTLE LEFTEYE SCH (09:35)
[2023-11-16 09:36] VITALS: BP 148/70
[2023-11-16] MEDS: ASPIRIN EC 81 MG TABLET.DR PO SCH (09:36)
[2023-11-16] MEDS: MONTELUKAST SODIUM 10 MG TABLET PO SCH (09:36)
[2023-11-16] MEDS: BRIMONIDINE 0.2% OPHT DROP 10 ML BOTTLE EACHEYE SCH ×2 (09:37→13:08)
== END 2023-11-16 14:20 | disposition home health service (06) | DRG 392 ==
LOC: ER 13:25 → MEDSURG3 11-15 00:06 → MED 11-16 06:34
PROVIDERS: ADMIT Internal Medicine; ATTEND Nurse Practitioner Acute Care
DX: K59.00 Constipation, unspecified (principal); M48.56XA Collapsed vertebra, not elsewhere classified, lumbar region, initial encounter for fracture; E87.1 Hypo-osmolality and hyponatremia; E87.20 Acidosis, unspecified; E86.0 Dehydration; K80.20 Calculus of gallbladder without cholecystitis without obstruction; E11.9 Type 2 diabetes mellitus without complications; H40.9 Unspecified glaucoma; Z95.5 Presence of coronary angioplasty implant and graft; K21.9 Gastro-esophageal reflux disease without esophagitis; I25.10 Atherosclerotic heart disease of native coronary artery without angina pectoris; I25.2 Old myocardial infarction; Z87.11 Personal history of peptic ulcer disease; Z79.899 Other long term (current) drug therapy; Z79.82 Long term (current) use of aspirin; M15.9 Polyosteoarthritis, unspecified; D72.829 Elevated white blood cell count, unspecified; M43.16 Spondylolisthesis, lumbar region
CPT/HCPCS: 36415; 70030-TC; 71045; 83605; 83735; 84100; 84443; 84484; 85025; 85651; 85730; 87040; 93005; A4606; A4663; G0378; J0696; J1956; J2650; J3490; J7040

== ENCOUNTER 2024-10-11 10:28 | Emergency (ER) | payer MEDICARE, BC ==
[~2024-10-11] VITALS: Ht 152.4 cm; Wt 56.7 kg
[~2024-10-11 10:28] MED LIST changes: -ASPI-605 PO; -ATEN50TA PO; -CLON0.5T4 PO; +CLON1TAB12 PO; +CLOP75TA15 PO; +DORZ10DR19 EACHEYE; +HYDR10TA37 PO; -IMDUR PO; +ISOS30TA86 PO; +MONT10TA33 PO; +NETA2.5D3 RIGHTEYE; -NETARSUDIL RIGHTEYE; +OLME40TA12 PO; +PANT40TA2 PO; -PLAVIX; +PRED5DRO24 LEFTEYE; -PREDNISOLONE 1% LEFTEYE
[2024-10-11 13:14] LABS: BASOPHILS % (AUTO) 0.7 % (0.0-2.0); EOSINOPHILS # (AUTO) 0.3 K/uL (0.0-0.7); EOSINOPHILS % (AUTO) 4.6 % (0.0-7.0); HEMATOCRIT 39.4 % (31.2-41.9); HEMOGLOBIN 13.4 g/dL (10.9-14.3); LYMPHOCYTES # (AUTO) 1.6 K/uL (0.8-4.8); LYMPHOCYTES % (AUTO) 22.7 % (20.5-51.5); MEAN CORPUSCULAR HEMOGLOBIN 31.4 uug (24.7-32.8); MEAN CORPUSCULAR HGB CONC 34 g/dL (32.3-35.6); MEAN CORPUSCULAR VOLUME 91.9 fL (75.5-95.3); MONOCYTES # (AUTO) 0.5 K/uL (0.1-1.30); MONOCYTES % (AUTO) 7.3 % (0.0-11.0); NEUTROPHILS # (AUTO) 4.5 K/uL (1.8-8.9); NEUTROPHILS % (AUTO) 64.7 % (38.5-71.5); PLATELET COUNT (AUTO) 341 K/uL (179-408); RED BLOOD CELL COUNT(AUTO) 4.28 MIL/uL (3.63-4.92); RED CELL DISTRIBUTION WIDTH 12.7 % (12.3-17.7)
[2024-10-11 13:23] LABS: CALCIUM 9.4 mg/dL (8.5-10.1); CARBON DIOXIDE 29 mmol/L (21-32); CHLORIDE 96 mmol/L (98-107); CREATININE 0.6 mg/dL (0.6-1.3); GLUCOSE 105 mg/dL (74-106); POTASSIUM 3.5 mmol/L (3.5-5.1); SODIUM SERUM 132 mmol/L (136-145); UREA NITROGEN, BLOOD 12 mg/dL (7-18)
[2024-10-11 13:26] LABS: DIFFERENTIAL COMMENT 1
[2024-10-11 13:36] LABS: MAGNESIUM 2.3 mg/dL (1.8-2.4); NT-PRO BNP 99 pg/mL (0-125)
[2024-10-11] MEDS ORDERED: CLON0.1T PO (14:33)
[2024-10-11] MEDS ORDERED: AMLO-212 PO (14:33)
[2024-10-11 14:50] VITALS: BP 166/83; TEMP 98.8; O2SAT 94
== END 2024-10-11 14:52 | disposition home or self-care (01) ==
LOC: ER 10:28
DX: R05.3 Chronic cough (principal); E11.9 Type 2 diabetes mellitus without complications; I11.9 Hypertensive heart disease without heart failure; Z79.02 Long term (current) use of antithrombotics/antiplatelets; Z79.899 Other long term (current) drug therapy; Z87.19 Personal history of other diseases of the digestive system; Z95.5 Presence of coronary angioplasty implant and graft; Z88.0 Allergy status to penicillin; Z88.7 Allergy status to serum and vaccine
CPT/HCPCS: 36415; 71045; 83735; 85025; A4606; A4663